=== PATIENT | male | born 2000 | race Caucasian/White ===

== ENCOUNTER 2019-05-17 15:18 | Emergency (ER) | payer OTHER ==
[~2019-05-17] VITALS: Ht 167.6 cm; Wt 89.6 kg
[~2019-05-17 15:18] MED LIST: ADDERALL 10 MG10 MG
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
--- OUTSIDE RECORDS SUMMARY | 2019-05-17 15:21 | XMS REPORT ---
Author Author [facility] Address Unknown Phone Unavailable Care Team Providers Care Lawn Mower Repairer Name Role Phone Carl DILL Unavailable Unavailable Problems This patient has no known problems. Allergies, Adverse Reactions, Alerts This patient has no known allergies or adverse reactions. Medications This patient has no known medications. Results Test Description Test Time Test Comments Text Results Atomic Results Result Comments TISSUE EXAM 2018-12-11 09:57:00 Surgical Pathology Report Case: [id number] Authorizing Provider: Billy Jackson MD Collected: 11/20/2018 1441 Ord ering Location: [facility] Received: 11/20/2018 1547 SERVICES Pathologist: Aidan Pak MD Specimen: Disc L5-S1 VERTEBRAL COLUMN, INTERVERTEBRAL DISC, DISCECTOMY:FRAGMENTS OF FIBROCARTILAGE WITH MILD DEGENERATIVE CHANGES Signing Pathologist Direct Phone Line: [phone] signed by Aidan Pak MD on 12/11/2018 at 9:57 [id number]; [id number] nucleus pulposus of the lumbarDisc L5-X7Ejsquufd in saline labeled with the patient's information and labeled "disc L5-S1" are multiple fragments of nino-pink fibrocartilaginous tissue measuring 2.5 x 2 x 0.5 cm in aggregate, submitted entirely A1 for decalcification. KAH/CG/pl Performed NEEDLE EMG, 2 EXTREMITY 2018-11-22 11:43:00 NEUROCONNECT INTRAOPERATIVE MONITORING REPORT Patient Name: Espinoza Gonzalez [facility] Ce nter Surgery Date: 11/20/2018 [place] Pro: [id number] Monitoring began at 1343 and ended at 1354 Surgeon: Billy Jackson M.D Examining Physician : Charlene Chong M.D. Monitoring Technologist: THOMAS Fam Procedure: L5-S1 Microdisc Free-running EMG of bilateral Vastus Lateralis (L2- L4), Tibialis Anterior (L4-L5), and Lateral Gastrocnemius (L5-S2) [...] the nerve roots monitored remained undisturbed. Charlene Chong M.D. M54.41, M51.26 C METABOLIC PANEL 2018-11-21 06:56:00 SODIUM (BEAKER) (test vapn=167) 138 meq/L 136-145 POTASSIUM (BEAKER) (test rzvx=393) 4.2 meq/L 3.5-5.1 CHLORIDE (BEAKER) (test mlea=417) 106 meq/L 98-107 CO2 (BEAKER) (test ptiq=630) 24 meq/L 22-29 BLOOD UREA NITROGEN (BEAKER) (test lodo=737) 17 mg/dL 7-21 CREATININE (BEAKER) (test opqm=321) 0.86 mg/dL 0.57-1.25 GLUCOSE RANDOM (BEAKER) (test bcwk=393) 131 mg/dL 70-105 CALCIUM (BEAKER) (test irod=515) 9.5 mg/dL 8.4-10.2 EGFR (BEAKER) (test omal=3328) 113 mL/min/1.73 sq m ESTIMATED GFR IS NOT ACCURATE CREATININE CLEARANCE IN PREDICTING GLOMERULAR FILTRATION RATE. ESTIMATED GFR IS NOT APPLICABLE FOR DIALYSIS PATIENTS. CBC (HEMOGRAM ONLY)2018-11-21 06:34:00* Test Item Value Reference Range Comments WHITE BLOOD CELL COUNT (BEAKER) (test xjfq=852) 10.9 K/ L 3.5-10.5 RED BLOOD CELL COUNT (BEAKER) (test fttw=852) 4.84 M/ L 4.63-6.08 HEMOGLOBIN (BEAKER) (test yhrz=356) 14.5 GM/DL 13.7-17.5 HEMATOCRIT (BEAKER) (test odcy=158) 41.2 % 40.1-51.0 MEAN CORPUSCULAR VOLUME (BEAKER) (test bugb=037) 85.1 fL 79.0-92.2 MEAN CORPUSCULAR HEMOGLOBIN (BEAKER) (test vaem=676) 30.0 pg 25.7-32.2 MEAN CORPUSCULAR HEMOGLOBIN CONC (BEAKER) (test aggy=578) 35.2 GM/DL 32.3-36.5 RED CELL DISTRIBUTION WIDTH (BEAKER) (test soky=568) 11.7 % 11.6-14.4 PLATELET COUNT (BEAKER) (test wslq=786) 201 K/CU MM 150-450 MEAN PLATELET VOLUME (BEAKER) (test xhbs=181) 10.2 fL 9.4-12.4 NUCLEATED RED BLOOD CELLS (BEAKER) (test pgmk=545) 0 /100 WBC 0-0 FL, INFECTION CONTROL RN IN OR/30 MINUTE [id number] 14:30:00Reason for exam:->PAIN FINAL REPORT Localization: Clinical history: Pain Compari son: No comparison Two image(s) was(were) submitted for interpretation. Report:I maging was performed in the operating room. Surgical hardware is seen overlying the posterior soft tissues of the back at L5-S1. This information was discussed with the OR personnel at the time of dictation. Signed: Audrey Guido Ve rified Date/Time: 11/20/2018 14:30:02 Reading Location: [facility] B1 [id number] Consult Re ading Room C METABOLIC [id number] 05:31:00* Test Item Value Reference Range Comments SODIUM (BEAKER) (test dmak=321) 139 meq/L 136-145 POTASSIUM (BEAKER) (test wafx=978) 4.4 meq/L 3.5-5.1 CHLORIDE (BEAKER) (test rlga=010) 104 meq/L 98-107 CO2 (BEAKER) (test tvaq=636) 27 meq/L 22-29 BLOOD UREA NITROGEN (BEAKER) (test gogr=548) 18 mg/dL 7-21 CREATININE (BEAKER) (test qbzc=760) 0.90 mg/dL 0.57-1.25 GLUCOSE RANDOM (BEAKER) (test cdcz=864) 96 mg/dL 70-105 CALCIUM (BEAKER) (test qgqw=248) 10.0 mg/dL 8.4-10.2 EGFR (BEAKER) (test usbi=7109) 108 mL/min/1.73 sq m ESTIMATED GFR IS NOT ACCURATE CREATININE CLEARANCE IN PREDICTING GLOMERULAR FILTRATION RATE. ESTIMATED GFR IS NOT APPLICABLE FOR DIALYSIS PATIENTS. [id number] 05:18:00* Test Item Value Reference Range Comments PARTIAL THROMBOPLASTIN TIME (BEAKER) (test hwdx=181) 31.2 seconds 22.5-36.0 CBC W/PLT COUNT & AUTO [id number] 05:10:00* Test Item Value Reference Range Comments WHITE BLOOD CELL COUNT (BEAKER) (test evbz=188) 4.2 K/ L 3.5-10.5 RED BLOOD CELL COUNT (BEAKER) (test iilm=405) 5.02 M/ L 4.63-6.08 HEMOGLOBIN (BEAKER) (test anal=399) 15.0 GM/DL 13.7-17.5 HEMATOCRIT (BEAKER) (test rdgd=300) 43.0 % 40.1-51.0 MEAN CORPUSCULAR VOLUME (BEAKER) (test hwhc=581) 85.7 fL 79.0-92.2 MEAN CORPUSCULAR HEMOGLOBIN (BEAKER) (test yxad=613) 29.9 pg 25.7-32.2 MEAN CORPUSCULAR HEMOGLOBIN CONC (BEAKER) (test ofaq=238) 34.9 GM/DL 32.3-36.5 RED CELL DISTRIBUTION WIDTH (BEAKER) (test ccyb=315) 11.8 % 11.6-14.4 PLATELET COUNT (BEAKER) (test jmuo=763) 182 K/CU MM 150-450 MEAN PLATELET VOLUME (BEAKER) (test rgcc=141) 10.0 fL 9.4-12.4 NUCLEATED RED BLOOD CELLS (BEAKER) (test jlrm=786) 0 /100 WBC 0-0 NEUTROPHILS RELATIVE PERCENT (BEAKER) (test wxdk=565) 36 % LYMPHOCYTES RELATIVE PERCENT (BEAKER) (test pqal=929) 45 % MONOCYTES RELATIVE PERCENT (BEAKER) (test seig=740) 13 % EOSINOPHILS RELATIVE PERCENT (BEAKER) (test yagf=080) 5 % BASOPHILS RELATIVE PERCENT (BEAKER) (test olyk=742) 1 % NEUTROPHILS ABSOLUTE COUNT (BEAKER) (test nzjd=954) 1.51 K/ L 1.78-5.38 LYMPHOCYTES ABSOLUTE COUNT (BEAKER) (test timu=088) 1.86 K/ L 1.32-3.57 MONOCYTES ABSOLUTE COUNT (BEAKER) (test bvmg=347) 0.55 K/ L 0.30-0.82 EOSINOPHILS ABSOLUTE COUNT (BEAKER) (test gbzj=394) 0.19 K/ L 0.04-0.54 BASOPHILS ABSOLUTE COUNT (BEAKER) (test mpho=591) 0.03 K/ L 0.01-0.08 IMMATURE GRANULOCYTES-RELATIVE PERCENT (BEAKER) (test unrj=6781) 1 % 0-1 BASIC METABOLIC [id number] 05:06:00* Test Item Value Reference Range Comments SODIUM (BEAKER) (test ietv=245) 140 meq/L 136-145 POTASSIUM (BEAKER) (test pnrz=785) 3.8 meq/L 3.5-5.1 Specimen slightly hemolyzed CHLORIDE (BEAKER) (test qjmk=516) 108 meq/L 98-107 CO2 (BEAKER) (test qabh=885) 24 meq/L 22-29 BLOOD UREA NITROGEN (BEAKER) (test ttat=175) 18 mg/dL 7-21 CREATININE (BEAKER) (test ccap=854) 0.88 mg/dL 0.57-1.25 Specimen slightly hemolyzed GLUCOSE RANDOM (BEAKER) (test fvxn=805) 104 mg/dL 70-105 CALCIUM (BEAKER) (test ejdq=227) 9.3 mg/dL 8.4-10.2 EGFR (BEAKER) (test msvb=6619) 110 mL/min/1.73 sq m ESTIMATED GFR IS NOT ACCURATE CREATININE CLEARANCE IN PREDICTING GLOMERULAR FILTRATION RATE. ESTIMATED GFR IS NOT APPLICABLE FOR DIALYSIS PATIENTS. PROTHROMBIN TIME/[id number] 04:57:00* Test Item Value Reference Range Comments PROTIME (BEAKER) (test pjub=129) 13.5 seconds 11.7-14.7 INR (BEAKER) (test sukp=879) 1.0 <=5.9 RECOMMENDED COUMADIN/WARFARIN INR THERAPY RANGESSTANDARD DOSE: 2.0 - 3.0 Inclu tuan: PROPHYLAXIS for venous thrombosis, systemic embolization; TREATMENT for allen ous thrombosis and/or pulmonary embolus.HIGH RISK: Target INR is 2.5-3.5 for pat ients with mechanical heart valves.MR, SPINE, LUMBAR, WITHOUT [id number] 18:42:00FINAL REPORT MRI lumbar spine without contrast 11/18/2018 [...] the right S1 nerve root. Signed: Pb Delgado [facility] Verified Date/Time: 11/18/2018 18:42:24 Reading Location: [facility] Radiology Reading Room ALYSIS W/ [id number] 14:10:00* Test Item Value Reference Range Comments COLOR (BEAKER) (test blnk=903) Yellow CLARITY (BEAKER) (test vvll=941) Clear SPECIFIC GRAVITY UA (BEAKER) (test skqj=056) 1.026 1.001-1.035 PH UA (BEAKER) (test ujdk=655) 6.5 5.0-8.0 PROTEIN UA (BEAKER) (test grvk=629) Negative Negative GLUCOSE UA (BEAKER) (test kamm=419) Negative Negative KETONES UA (BEAKER) (test ktta=971) Negative Negative BILIRUBIN UA (BEAKER) (test ttus=121) Negative Negative BLOOD UA (BEAKER) (test rvyj=489) Negative Negative NITRITE UA (BEAKER) (test fgnz=811) Negative Negative LEUKOCYTE ESTERASE UA (BEAKER) (test mnwo=855) Negative Negative UROBILINOGEN UA (BEAKER) (test oyuq=143) 0.2 mg/dL 0.2-1.0 RBC UA (BEAKER) (test maiy=908) 0 /HPF WBC UA (BEAKER) (test emao=632) < /HPF MUCUS (BEAKER) (test vlbv=8287) Rare SOURCE(BEAKER) (test xwde=8125) U/S, TESTICULAR (SCROTUM)2018-11-18 13:55:00Reason for exam:->BACK PAINReason for exam:->LEG PAINright leg painFINAL REPORT Scrotal ultrasound Clinical History: Back pain [...] 1. Unremarkable scrotal ultrasound. Signed: Fadi Jarquin MDReport Verified Date/Time: 11/18/2018 13:55:54 Reading Location: [address] Ultrasound Reading Room , HIP, 2 VIEWS, [id number] 12:45:00Reason for exam:->BACK PAINReason for exam:-> LEG PAINright leg painFINAL REPORT EXAMS:AP radiograph of the pelvis and AP and lateral views of the right hip HISTORY PROVIDED: Back pain, leg pain COMPARISON: None available IMPRESSION:No acute fracture or dislocation is identified. The soft tissues are unremarkable. Signed: Jennifer Funez Verified Date/Time: 11/18/2018 12:45:43 Reading Location: [facility] Reading Room , PELVIS, 1 OR 2 [id number] 12:45:00 Reason for exam:->BACK PAINReason for exam:->LEG PAINright leg painFINAL REPORT EXAMS:AP radiograph of the pelvis and AP and lateral views of the right hip HISTORY PROVIDED: Back pain, leg pain COMPARISON: None available IMPRESSION:No acute fracture or dislocation is identified. The soft tissues are unremarkable. Signed: Jennifer Funez Verified Date /Time: 11/18/2018 12:45:43 Reading Location: [facility] Reading Room Elec tronically signed by: JENNIFER FUNEZ on 11/18/2018 12:45 PM
[2019-05-17] MEDS ORDERED: ALBUTEROL/IPRATROPIUM 3 ML NEB NEB ONE (15:45)
[2019-05-17] MEDS ORDERED: ALBUTEROL/IPRATROPIUM 3 ML NEB ONE (16:06)
--- NOTE | 2019-05-17 16:08 | Diagnostic Imaging Report ---
EXAMINATION: CXR 2 VIEW - HOPD INDICATION: Cough. COMPARISON: None FINDINGS: TUBES and LINES: Loop recorder overlying the left lung base. LUNGS: Lungs are well inflated. Lungs are clear. There is no evidence of pneumonia or pulmonary edema. PLEURA: No pleural effusion or pneumothorax. HEART AND MEDIASTINUM: The cardiomediastinal silhouette is unremarkable. BONES AND SOFT TISSUES: No acute osseous lesion. Soft tissues are unremarkable. UPPER ABDOMEN: No free air under the diaphragm. IMPRESSION: No acute thoracic abnormality. Signed by: Dr. Jeremy Henao M.D. on 05/17/2019 4:05 PM
[2019-05-17 16:56] VITALS: BP 106/78
== END 2019-05-17 16:50 | disposition home or self-care (01) ==
LOC: FSED 15:18
DX: R05 Cough (principal); J45.31 Mild persistent asthma with (acute) exacerbation
CPT/HCPCS: 71046; 99283

== ENCOUNTER 2019-08-06 21:17 | Emergency (ER) | payer OTHER ==
[~2019-08-06] VITALS: Ht 167.6 cm; Wt 86.2 kg
--- OUTSIDE RECORDS SUMMARY | 2019-08-06 21:19 | XMS REPORT | Summary of Care ---
Author Author [facility] Organization [facility] Address Unknown Phone Unavailable Care Team Providers Care Crusher Machine Operator Name Role Phone Tavares Mir DO PCP Reason for Visit * Reason Comments Follow Up Encounter Details Care Team Description Date Type Department Billy Jackson MD [address] [place] [address] Follow Up 06/16/2019 Office Visit [facility] Neurosurgery [address], [address] [place] [address] Allergies Comments Active Allergy Reactions Severity Noted Date Erythromycin Rash Medium 05/18/2016 documented as of this encounter (statuses as of 06/20/2019) Medications End Date Status Medication Sig Dispensed Refills Start Date Active amphetamine-dextroampheta Take 10 mg by 0 mine (ADDERALL, 10MG,) 10 mouth daily. MG tablet Active methylPREDNISolone Take 1 Tab by 21 Tab 0 (MEDROL DOSEPACK) 4 MG mouth See 9 tablet Admin Instructions. Active lorazepam (ATIVAN) 0.5 MG Take 1 tablet 2 Tab 0 tablet PO 1 hr prior 9 to the MRI, may repeat x1 immediately prior to the MRI documented as of this encounter (statuses as of 06/20/2019) Active Problems Problem Noted Date Status post placement of implantable loop recorder 09/18/2016 documented as of this encounter (statuses as of 06/20/2019) Social History Date Tobacco Use Types Packs/Day Years Used Never Smoker Smokeless Tobacco: Never Used Drinks/Week oz/Week Comments Alcohol Use No Sex Assigned at Date Recorded Not on file Industry Job Start Date Occupation Not on file Not on file Not on file Travel End Travel History Travel Start No recent travel history available. documented as of this encounter Last Filed Vital Signs Reading Time Taken Comments Vital Sign 133/78 06/16/2019 12:01 PM CDT Blood Pressure 92 06/16/2019 12:01 PM CDT Pulse - - Temperature 18 06/16/2019 12:01 PM CDT Respiratory Rate - - Oxygen Saturation - - Inhaled Oxygen Concentration 86.2 kg (190 lb) 06/16/2019 12:01 PM CDT Weight 167.6 cm (5' 6") 06/16/2019 12:01 PM CDT Height 30.67 06/16/2019 12:01 PM CDT Body Mass Index documented in this encounter Progress Notes * Billy Jackson MD - 06/16/2019 10:00 AM CDT Reason for visit: Post op visit. I had the pleasure of seeing Mr. Gonzalez at the neurosurgery clinic. The patie nt is a 18 y.o. male, about 7 months who underwent right L5-S1 hemilaminotomies with medial facetecomy and foraminotomy with microdiscectomy on 11/20/18 for Lum bar radiculopathy and Lumbar disc herniation, L5-S1. He initially did well after surgery, but his pain returned April 2019. He remains with right posterior leg pain that radiates to the plantar aspect of the foot with numbness. His pain is not constant, but is still very bothersome. His back pain is minimal. Pain severity is typically 5/10 and flares up to 10/1 0. His pain is intensified when he sneezes or coughs. He has completed an MRI of the lumbar spine and is here to discuss results. Patient returns for follow up to discuss their progress. CURRENT MEDICATIONS: Current Outpatient Medications Medication Sig Dispense Refill amphetamine-dextroamphetamine (ADDERALL, 10MG,) 10 MG tablet Take 10 mg by m outh daily. lorazepam (ATIVAN) 0.5 MG tablet Take 1 tablet PO 1 hr prior to the MRI, may repeat x1 immediately prior to the MRI 2 Tab 0 methylPREDNISolone (MEDROL DOSEPACK) 4 MG tablet Take 1 Tab by mouth See Adm in Instructions. 21 Tab 0 No current facility-administered medications for this visit. REVIEW OF SYSTEMS: General ROS: negative for - chills, hot flashes, malaise or night sweats Respiratory ROS: no cough, shortness of breath, or wheezing Cardiovascular ROS: no chest pain or dyspnea on exertion Musculoskeletal ROS: +right leg pain negative for - joint stiffness, joint swell ing or muscular weakness Neurological ROS: negative for - bowel and bladder control changes, confusion, s eizures or visual changes PHYSICAL EXAM: Vitals: 06/16/19 1201 BP: 133/78 Pulse: 92 Resp: 18 Weight: 190 lb (86.2 kg) Height: 5' 6" (1.676 m) Patient is oriented to person, place and time. CN 2-12 are grossly intact bilaterally Motor exam: UE D B T WF WE IM Rt 5/5 5/5 5/5 5/5 5/5 5/5 Lt 5/5 5/5 5/5 5/5 5/5 5/5 LE: IP KE KF DF PF EHL Rt 5/5 5/5 5/5 5/5 5/5 5/5 Lt 5/5 5/5 5/5 5/5 5/5 5/5 Sensory exam : intact to light touch DTR: 2+ throughout Gait: antalgic DIAGNOSTIC IMAGING: MRI of the lumbar spine ([facility]) dated 06/16/19 residual vs. recurrent disc he rniation on the right at L5/S1 DIAGNOSIS: Encounter Diagnosis and Orders ICD-10-CM 1. HNP (herniated nucleus pulposus), lumbar M51.26 2. Lumbar radiculopathy M54.16 ASSESSMENT/PLAN: Mr. Espinoza Gonzalez is a pleasant 18 y.o. male, about 7 months who un derwent right L5-S1 hemilaminotomies with medial facetecomy and foraminotomy wit h microdiscectomy on 11/20/18 for Lumbar radiculopathy and Lumbar disc herniatio n, L5-S1. He reports recurrent lumbar radicular pain. Imaging of the lumbar spin e reveals a residual vs. recurrent disc herniation on the right at L5/S1. After review of neurological exam, clinical history, and radiological studies, surgery is offered to the patient. Surgery will entail a Redo MIS right L5/S1 microdisc ectomy. The indications, methods, alternatives, and risks of lumbar discectomy surgery w ere described in detail to the patient. Indications include decompression of th e thecal sac and nerve roots to alleviate the patient's symptoms. Methods inclu de an open surgical approach. Alternatives include continued conservative thera py with injections, physical therapy, and analgesic medications, or other proced ures such as interspinous distraction devices. Risks of surgery include, but ar e not limited to , coma, paralysis, infection, need for additional surgery, cerebrospinal fluid leak, delayed spinal instability, nerve root injury, etc. Medical complications including deep venous thrombosis and pulmonary embolism, p neumonia, urinary tract infection, cerebrovascular accident, blindness, and myoc ardial infarction, etc., were also reviewed. The patient understands these risks and agrees to proceed. He will call in to schedule. Billy Jackson MD Aluminum Siding Installer Department of Neurosurgery [facility] documented in this encounter Plan of Treatment Health Maintenance Due Date Last Done Comments TETANUS SHOT (ADULT) 2013 04/20/2003, 02/20/2001, 11/16/1999, Additional history exists BMI FOLLOW UP PLAN 2016 HIV SCREENING 2016 FLU VACCINE > 6 MONTHS 05/29/2019 documented as of this encounter Results Not on filedocumented in this encounter Visit Diagnoses Diagnosis HNP (herniated nucleus pulposus), lumbar - Primary Displacement of lumbar intervertebral disc without myelopathy Lumbar radiculopathy Thoracic or lumbosacral neuritis or radiculitis, unspecified documented in this encounter Insurance Type Payer Benefit Subscriber ID Effective Phone Address Plan / Dates Group PPO [employer] xxxxxxxxx 2018-P [address] [id number] [id number] [employer]EE [facility] [place] [address] PPO PRIME - xxxxxxxxxxx 2013- [address] [address] [place] [address] documented as of this encounter
[2019-08-06] MEDS ORDERED: KETOROLAC TROMETHAMINE 30 MG/ML VIAL IV STA (21:53)
[2019-08-06] MEDS ORDERED: SODIUM CHLORIDE 0.9% 1000ML 1,000 ML IV SCH (22:00)
[2019-08-06] MEDS ORDERED: ONDANSETRON HCL 4 MG ORAL DISINTEGRATING TAB PO PRN (22:00)
[2019-08-06] MEDS ORDERED: KETOROLAC TROMETHAMINE 30 MG/ML VIAL ONE (22:23)
[2019-08-06] MEDS ORDERED: SODIUM CHLORIDE 0.9% 1000ML 1,000 ML ONE (22:23)
--- NOTE | 2019-08-06 23:08 | Diagnostic Imaging Report ---
EXAM: CT Abdomen and Pelvis WITHOUT contrast INDICATION: Abdominal pain. COMPARISON: None. TECHNIQUE: Abdomen and pelvis were scanned utilizing a multidetector helical scanner from the lung base to the pubic symphysis without administration of IV contrast. Absence of intravenous contrast decreases sensitivity for detection of focal lesions and vascular pathology. Coronal and sagittal reformations were obtained. Routine protocol was performed. IV CONTRAST: None. ORAL CONTRAST: Water RADIATION DOSE: Total DLP: 718.03 mGy*cm Estimated effective dose: (DLP x 0.015 x size factor) mSv COMPLICATIONS: None FINDINGS: LINES and TUBES: None. LOWER THORAX: There is bibasilar atelectasis. HEPATOBILIARY: No focal hepatic lesions. No biliary ductal dilation. GALLBLADDER: No radio-opaque stones or sludge. No wall thickening. SPLEEN: No splenomegaly. PANCREAS: No focal masses or ductal dilatation. ADRENALS: No adrenal nodules KIDNEYS/URETERS: No hydronephrosis. No cystic or solid mass lesions. No stones. GI TRACT: No abnormal distention, wall thickening, or evidence of bowel obstruction. Appendix is normal. PELVIC ORGANS/BLADDER: Unremarkable. LYMPH NODES: No lymphadenopathy. VESSELS: Unremarkable. PERITONEUM / RETROPERITONEUM: No free air or fluid. There is a small focal area of fat attenuation abutting the descending colon measuring 1.2 cm on images 63 series 2, associated with mild fat stranding as seen on axial images 61 and 62 suggestive of epiploic appendagitis. BONES: Unremarkable. SOFT TISSUES: Unremarkable. IMPRESSION: 1. Findings suggestive of epiploic appendagitis (correlate for pain in the left lower quadrant). Signed by: Dr. Enoc Simpson M.D. on 08/06/2019 11:05 PM
[2019-08-07 00:07] VITALS: BP 128/69
== END 2019-08-07 00:22 | disposition home or self-care (01) ==
LOC: FSED 21:17
DX: R10.32 Left lower quadrant pain (principal)
CPT/HCPCS: 74176; 80053; 81003; 85025; 96374; 99284; J1885; J7030

== ENCOUNTER 2019-11-27 17:10 | Emergency (ER) | payer OTHER ==
[~2019-11-27] VITALS: Ht 167.6 cm; Wt 91.2 kg
--- NOTE | 2019-11-27 17:56 | Diagnostic Imaging Report ---
EXAMINATION: CXR 2 VIEW - HOPD INDICATION: Cough COMPARISON: None FINDINGS: LINES/TUBES:None LUNGS:The lungs are well-inflated. No focal consolidation or pulmonary edema. PLEURA:No pleural effusion or pneumothorax. MEDIASTINUM:The cardiomediastinal silhouette appears normal in size and shape. BONES/SOFT TISSUES:No acute osseous injury. ABDOMEN:No free air under the diaphragm. IMPRESSION: No focal pneumonia or pulmonary edema. Signed by: Jennifer Allen MD on 11/27/2019 5:53 PM
[2019-11-27] MEDS ORDERED: NAPROSYN500 MG PO (18:04)
[2019-11-27] MEDS ORDERED: TESSALON PERLE100 MG PO (18:04)
[2019-11-27] MEDS ORDERED: VENTOLIN HFA18 GM PO (18:04)
== END 2019-11-27 18:22 | disposition home or self-care (01) ==
LOC: FSED 17:10
DX: R50.9 Fever, unspecified (principal); R05 Cough; J11.1 Influenza due to unidentified influenza virus with other respiratory manifestations
CPT/HCPCS: 71046; 83518; 87400; 99283

== ENCOUNTER 2020-03-05 16:29 | Emergency (ER) | payer OTHER ==
[~2020-03-05] VITALS: Ht 167.6 cm; Wt 86.2 kg
[~2020-03-05 16:29] MED LIST changes: +NAPROSYN500 MG PO; +TESSALON PERLE100 MG PO; +VENTOLIN HFA18 GM PO
--- OUTSIDE RECORDS SUMMARY | 2020-03-05 16:32 | XMS REPORT | Clinical Summary ---
Author Author CHRISTINE [employer] [facility]The 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 Active ibuprofen (ADVIL,MOTRIN) Take 600 mg 0 600 MG tablet by mouth every 6 (six) hours as needed for Pain. 11/16/2019 acetaminophen (TYLENOL) Take 2 30 tablet 0 325 MG tablet tablets (650 9 mg total) by mouth every 4 (four) hours as needed for up to 360 days. 10/13/2019 acetaminophen-codeine Take 1 tablet 20 tablet 0 (TYLENOL #4) 300-60 mg by mouth 9 per tablet every 4 (four) hours as needed for Pain for up to 10 days. Max Daily Amount: 6 tablets Active Problems Problem Noted Date Recurrent herniation of lumbar disc 10/03/2019 Lumbar nerve root compression 11/19/2018 Acute right-sided low back pain with right-sided scia [place] 11/19/2018 Encounters Care Team Description Date Type Specialty Billy Jackson MD LAMINECTOMY,LUMBAR MIS 10/03/2019 Surgery Aurelia Pardo MD 10/03/2019 Anesthesia Event Billy Jackson MD Pre-op testing 10/03/2019 Hospital Encounter Billy Jackson MD 09/30/2019 Hospital Encounter Billy Jackson MD 09/30/2019 Hospital Cardiology Encounter Billy Jackson MD Recurrent herniation of lumbar disc; Pre-op testing 09/30/2019 Hospital Pre-Admission Testi ng Encounter Tavares Sherman 09/30/2019 Outside Orders Billy Jackson MD Pre-op testing (Primary Dx); Recurrent herniation of lumbar disc 09/18/2019 Orders Only Family Medicine Lacie Goodson, RN BIRTHING 1.5, [facility] Johnny Mr Lumbar radiculopathy; Personal history of surgery to heart and great vessels, presenting hazards to health 06/16/2019 Hospital Magnetic Resonance Encounter Imaging Lacie Goodson RN BIRTHING Lumbar radiculopathy (Primary Dx); Personal history of surgery to heart and great vessels, presenting hazards to health 05/19/2019 Outside Orders Central Scheduling after 03/05/2019 Family History Medical History Relation Name Comments No Known Problem Other Relation Name Status Comments Other Social History Date Tobacco Use Types Packs/Day Years Used Never Smoker Smokeless Tobacco: Never Used Alcohol Use Drinks/Week oz/Week Comments No Alcohol Habits Answer Date Recorded How often do you have a drink containing alcohol? Never 11/18/2018 How many drinks containing alcohol do you have on No t asked a typical day when you are [...] Vital Signs Time Taken Vital Sign Reading 10/03/2019 1:40 PM RADIO TELEVISION ANNOUNCER Blood Pressure 117/55 10/03/2019 1:40 PM [employer]IO TELE[employer]ION ANNOUNCER Pulse 66 10/03/2019 1:40 PM RADIO TELEVISION ANNOUNCER Temperature 37.1 C (98.8 F) 10/03/2019 1:40 PM RADIO TELEVISION ANNOUNCER Respiratory Rate 15 10/03/2019 10:53 AM RADIO TELEVISION ANNOUNCER Oxygen Saturation 97% - Inhaled Oxygen - Concentration 10/03/2019 6:00 AM RADIO TELEVISION ANNOUNCER Weight 90.2 kg (198 lb 13.7 oz) 10/03/2019 6:00 AM RADIO TELEVISION ANNOUNCER Height 168.9 cm (5' 6.5") 10/03/2019 6:00 AM RADIO TELEVISION ANNOUNCER Body Mass Index 31.62 Plan of Treatment Not on file Procedures Comments Procedure Name Priority Date/Time Associated Diag nosis RHYTHM STRIP - SCAN 10/07/2019 1:51 PM RADIO TELEVISION ANNOUNCER NEEDLE EMG, 2 EXTREMITY Routine 10/03/2019 9:11 AM RADIO TELEVISION ANNOUNCER TISSUE EXAM AP Routine 10/03/2019 9:02 AM RADIO TELEVISION ANNOUNCER FL FLUORO NON-SPECIFIC UP Routine 10/03/2019 TO 1 HOUR 8:21 AM RADIO TELEVISION ANNOUNCER PROCEDURE W/ C-ARM 10/03/2019 Recurrent herniati on of 7:30 AM RADIO TELEVISION ANNOUNCER lumbar disc Case Notes 60 MINS PER LEILA Special Needs (PRONE POSITION, C-ARM, NEURO-ED TORING:EMG , MICROSCOPE , REGULAR OR TABLE, MAME FRAME, MEDTRONIC) PROCEDURE W/ 10/03/2019 Recurrent herniatio n of INTRAOPERATIVE 7:30 AM RADIO TELEVISION ANNOUNCER lumbar disc NEUROMONITORING Case Notes 60 MINS PER LEILA Special Needs (PRONE POSITION, C-ARM, NEURO-ED TORING:EMG , MICROSCOPE , REGULAR OR TABLE, MAME FRAME, MEDTRONIC) LAMINECTOMY,LUMBAR MIS 10/03/2019 Recurrent brayden iation of 7:30 AM RADIO TELEVISION ANNOUNCER lumbar disc Case Notes 60 MINS PER LEILA Special Needs (PRONE POSITION, C-ARM, NEURO-ED TORING:EMG , MICROSCOPE , REGULAR OR TABLE, MAME FRAME, MEDTRONIC) TRANSFUSION SERVICE 10/01/2019 REPORT - SCAN 5:55 PM RADIO TELEVISION ANNOUNCER ECG 12-LEAD Routine 09/30/2019 11:09 AM RADIO TELEVISION ANNOUNCER Procedure Note - Interface, External Ris In - 09/30/2019 5:14 PM RADIO TELEVISION ANNOUNCER Ventricula r Rate 63 BPM Atrial Rate 63 BPM P-R Interval 122 ms QRS Duration 90 ms Q-T Interval 358 ms QTC Calculatio n(Bazett) 366 ms P Hastings 35 degrees R Hastings 12 degrees T Hastings 26 degrees Normal sinus rhythm with sinus arrhythmia Normal ECG No previous ECGs available ECG 12-LEAD STAT 09/30/2019 Pre-op testing 11:09 AM RADIO TELEVISION ANNOUNCER XR CHEST 2 VIEWS Routine 09/30/2019 Recurrent her niation of 10:29 AM RADIO TELEVISION ANNOUNCER lumbar disc CBC W/PLT COUNT & AUTO Routine 09/30/2019 Pre-op testing DIFFERENTIAL 10:05 AM RADIO TELEVISION ANNOUNCER TYPE AND SCREEN, Routine 09/30/2019 Pre-op testin g AUTOMATED 10:05 AM RADIO TELEVISION ANNOUNCER URINALYSIS W/ REFLEX Routine 09/30/2019 Pre-op te sting URINE CULTURE 10:05 AM RADIO TELEVISION ANNOUNCER CBC W/PLT COUNT & AUTO Routine 09/30/2019 Pre-op testing DIFFERENTIAL 10:05 AM RADIO TELEVISION ANNOUNCER BASIC METABOLIC PANEL (7) Routine 09/30/2019 Pre- op testing 10:05 AM RADIO TELEVISION ANNOUNCER PROTHROMBIN TIME/INR Routine 09/30/2019 Pre-op te sting 10:05 AM RADIO TELEVISION ANNOUNCER APTT Routine 09/30/2019 Pre-op testing 10:05 AM RADIO TELEVISION ANNOUNCER MR LUMBAR SPINE WITHOUT STAT 06/16/2019 Lumbar radiculopathy IV CONTRAST 11:57 AM CDT Personal history of surgery to heart and great vessels, presenting hazards to health after 03/05/2019 Results * RHYTHM STRIP - SCAN (10/07/2019 1:51 PM RADIO TELEVISION ANNOUNCER) Narrative Performed At This result has an attachment that is n ot available. * NEEDLE EMG, 2 EXTREMITY (10/03/2019 9:11 AM RADIO TELEVISION ANNOUNCER) Specimen Narrative Performed At INTRAOPERATIVE MONITORING REPORT GE RIS Patient Name: Espinoza Gonzalez [facility] [place] Surgery Date:10/03/2019 Bunch Pro: [id number] Monitoring began at 724 and ended at 91 1 Surgeon: Billy Jackson M.D. Examining Physician: Winnie Kingston M.D. Monitoring Technologist: THOMAS De La Cruz Procedure: Microdisc L5-S1 Free-running EMG of bilateral Tibialis Anterior (L4-5) and Lateral Gastrocnemius (L5-S2) muscle groups. Description:Intraoperative neurophy siological monitoring was performed using free-running EMG of L2- S2 innervated muscle groups. Free-running EMG of L4-S2 innervated mu scle groups was monitored continuously throughout the operative p rocedure with some sporadic neurotonic emg firing seen in the right gastrocnemius. No firing was noted at closing.At closing, all EM G was quiet and stable with baselines. Surgeon aware of all respons es throughout the case and at closing. Conclusion: EMG results suggest that th ere were brief periods of probable neurotonic activity in the rig ht gastrocnemius, suggesting transient irritation of the involved ne rve/nerve root intraoperatively. Winnie Kingston M.D. M54.16 Procedure Note Interface, External Ris In - 11/04/2019 9:16 AM RADIO TELEVISION ANNOUNCER INTRAOPERATIVE MONITORING REPORT Patient Name: Espinoza Gonzalez [facility] Surgery Date: 10/03/2019 Bunch Pro: [id number] Monitoring began at 724 and ended at 911 Surgeon: Billy Jackson M.D. Examining Physician: Winnie Kingston M.D. Monitoring Technologist: THOMAS De La Cruz Procedure: Microdisc L5-S1 Free-running EMG of bilateral Tibialis Anterior (L4-5) and Lateral Gastrocnemius (L5-S2) muscle groups. Description: Intraoperative neurophysiological monitoring was performed using free-running EMG of L2-S2 innervated muscle groups. Free-running EMG of L4-S2 innervated muscle groups was monitored continuously throughout the operative procedure with some sporadic neurotonic emg firing seen in the right gastrocnemius. No firing was noted at closing. At closing, all EMG was quiet and stable with baselines. Surgeon aware of all responses throughout the case and at closing. Conclusion: EMG results suggest that there were brief periods of probable neurotonic activity in the right gastrocnemius, suggesting transient irritation of the involved nerve/nerve root intraoperatively. Winnie Kingston M.D. M54.16 Performing Organization Address City/State/Zipcode Ph one Number GE RIS * Tissue Exam (10/03/2019 9:02 AM RADIO TELEVISION ANNOUNCER) Case Report Surgical Pathology [facility] TH Report [facility] Case: [id number] Authorizing Provider:Billy Jackson MDCollected: 10/03/2019 0902 Ordering Location: [facility] PERIOPERATIVE Received: 10/03/2019 0950 SERVICES Pathologist: Aidan Pak MD Specimen:Disc L5-S1 DIAGNOSIS VERTEBRAL COLUMN, [facility] INTERVERTEBRAL DISC, L5-S1, [facility] DISCECTOMY: FRAGMENTS OF FIBROCARTILAGE WITH MILD DEGENERATIVE CHANGES Signing Pathologist Direct Phone Line: [phone] CPT Code(s) 38859; 18784 [facility] CLINICAL HISTORY Recurrent herniation of lumbar [facility] disc [facility] SPECIMEN SOURCE Disc L5-S1 [facility] GROSS DESCRIPTION Part A received in formalin [facility] labeled with the patient's [facility] name, accession number and "disc L5-S1" is a 2.5 x 2 x 0.5 cm aggregate of nino-pink to red soft tissue. The specimen is submitted in toto in cassette A1 for decal. NW/ew MICROSCOPIC DESCRIPTION Performed [facility] Specimen Tissue Performing Organization Address City/State/Zipcode Ph one Number [place] [address] [facility] * [place] fluoro non-specific up to 1 hour (10/03/2019 8:21 AM RADIO TELEVISION ANNOUNCER) Specimen Narrative Performed At FINAL REPORT [facility] FL, FLUORO, NON-SPECIFIC, UP TO 1 HOUR CLINICAL INDICATION:back pain COMPARISON: None IMPRESSION: A single lateral view of the lumbar spi ne is obtained intraoperatively. Indicators at the L5- S1 level Results were communicated to Dr. Jackson, who concurr ed with the above findings. Number of images: One Fluoroscopy time: 9.8 seconds Signed: JR Mai Robert MD Report Verified Date/Time: 08:22:18 Reading Location: [facility] Reading Room Procedure Note Interface, External Ris In - 10/03/2019 8:25 AM RADIO TELEVISION ANNOUNCER FINAL REPORT FL, FLUORO, NON-SPECIFIC, UP TO 1 HOUR CLINICAL INDICATION: back pain COMPARISON: None IMPRESSION: A single lateral view of the lumbar spine is obtained intraoperatively. Indicators at the L5-S1 level Results were communicated to Dr. Jackson, who concurred with the above findings. Number of images: One Fluoroscopy time: 9.8 seconds Signed: JR Mai Robert MD Report Verified Date/Time: 10/03/2019 08:22:18 Reading Location: [facility] Radiology Reading Room Performing Organization Address [facility] one Number GE RIS * TRANSFUSION SERVICE REPORT - SCAN (10/01/2019 5:55 PM RADIO TELEVISION ANNOUNCER) Narrative Performed At This result has an attachment that is n ot available. * ECG 12 lead (09/30/2019 11:09 AM RADIO TELEVISION ANNOUNCER) Specimen Narrative Performed At Ventricular Rate 63 BPM GE MUSE Atrial Rate 63 BPM P-R Interval 122 ms QRS Duration 90 ms Q-T Interval 358 ms QTC Calculation(Bazett) 366 ms P Hastings 35 degrees R Hastings 12 degrees T Hastings 26 degrees Normal sinus rhythm with sinus arrhythm ia Normal ECG No previous ECGs available Confirmed by Jay MCKOY BASANT ([id number]) on 10/01/2019 2:07:05 PM Procedure Note Interface, External Ris In - 10/01/2019 2:07 PM RADIO TELEVISION ANNOUNCER Ventricular Rate 63 BPM Atrial Rate 63 BPM P-R Interval 122 ms QRS Duration 90 ms Q-T Interval 358 ms QTC Calculation(Bazett) 366 ms P Hastings 35 degrees R Hastings 12 degrees T Hastings 26 degrees Normal sinus rhythm with sinus arrhythmia Normal ECG No previous ECGs available Confirmed by Jay MCKOY BASANT ([id number]) on 10/01/2019 2:07:05 PM Performing Organization Address [facility] one Number GE MUSE * XR chest 2 views (09/30/2019 10:29 AM RADIO TELEVISION ANNOUNCER) Specimen Narrative Performed At FINAL REPORT GE RIS INDICATION: Recurrent herniation of lum bar disc COMPARISON: None TECHNIQUE: Frontal and lateral views of the chest. FINDINGS: Lungs and pleura: Clear lungs. No effus ion. Heart and mediastinum: Normal heart siz e. Unremarkable mediastinal contours. Stable cardiac recording yasmany ce. Osseous structures: No acute abnormalit y. Additional findings: None. IMPRESSION: No acute intrathoracic abnormality. Signed: JR Mai Robert MD Report Verified Date/Time: 10:34:30 Reading Location: [facility] Radiolo gy Reading Room Procedure Note Interface, External Ris In - 09/30/2019 10:36 AM RADIO TELEVISION ANNOUNCER FINAL REPORT INDICATION: Recurrent herniation of lumbar disc COMPARISON: None TECHNIQUE: Frontal and lateral views of the chest. FINDINGS: Lungs and pleura: Clear lungs. No effusion. Heart and mediastinum: Normal heart size. Unremarkable mediastinal contours. Stable cardiac recording device. Osseous structures: No acute abnormality. Additional findings: None. IMPRESSION: No acute intrathoracic abnormality. Signed: JR Mai Robert MD Report Verified Date/Time: 09/30/2019 10:34:30 Reading Location: [facility] Radiology Reading Room Performing Organization Address City/State/Zipcode Ph one Number GE RIS * Urinalysis w/Microscopic + Reflex to Culture (09/30/2019 10:05 AM RADIO TELEVISION ANNOUNCER) Color, UA Yellow [facility] Clarity, UA Clear [facility] Specific [place], UA 1.023 1.001 - 1.035 [facility] pH, UA 6.5 5.0 - 8.0 [facility] Protein, UA Negative Negative [facility] Glucose, UA Negative Negative [facility] Ketones, UA Negative Negative [facility] Bilirubin, UA Negative Negative [facility] Blood, UA Negative Negative [facility] Nitrite, UA Negative Negative [facility] Leukocytes, UA Negative Negative [facility] Urobilinogen, UA 0.2 0.2 - 1.0 mg/dL [facility] RBC, UA <1 /HPF [facility] WBC, UA <1 /HPF [facility] Mucus Rare [facility] Specimen Source [facility] Specimen Urine Performing Organization Address [facility] one Number [address] [facility] * Type and screen, automated (09/30/2019 10:05 AM RADIO TELEVISION ANNOUNCER) ABO/RH AUTOMATED (BEAKER) O NEGATIVE [facility] Ab Scrn NEGATIVE [facility] Specimen Blood Performing Organization Address [facility] Ph one Number [address] [address] [facility] * CBC with platelet count + automated diff (09/30/2019 10:05 AM RADIO TELEVISION ANNOUNCER) WBC 5.5 3.5 - 10.5 K/L [facility] RBC 5.58 4.63 - 6.08 M/L [facility] Hemoglobin 16.9 13.7 - 17.5 GM/DL [facility] Hematocrit 49.4 40.1 - 51.0 % [facility] MCV 88.5 79.0 - 92.2 fL [facility] MCH 30.3 25.7 - 32.2 pg [facility] MCHC 34.2 32.3 - 36.5 GM/DL [facility] RDW 12.2 11.6 - 14.4 % [facility] Platelets 186 150 - 450 K/CU MM [facility] MPV 10.5 9.4 - 12.4 fL [facility] nRBC 0 0 - 0 /100 WBC [facility] % Neutros 53 % [facility] % Lymphs 32 % [facility] % Monos 12 % [facility] % Eos 1 % [facility] % Baso 1 % [facility] # Neutros 2.93 1.78 - 5.38 K/L [facility] # Lymphs 1.78 1.32 - 3.57 K/L [facility] # Monos 0.64 0.30 - 0.82 K/L [facility] # Eos 0.07 0.04 - 0.54 K/L [facility] # Baso 0.05 0.01 - 0.08 K/L [facility] Immature 1 0 - 1 % [facility] Granulocytes-Relative [facility] Specimen Blood Performing Organization Address City/[facility] Ph one Number [place] [phone] [place] [address] * aPTT (09/30/2019 10:05 AM RADIO TELEVISION ANNOUNCER) PTT 32.2 22.5 - 36.0 seconds [facility] Specimen Blood Performing Organization Address City/[facility] Ph one Number [place] [address] [facility] * Prothrombin time/INR (09/30/2019 10:05 AM RADIO TELEVISION ANNOUNCER) Protime 13.1 11.9 - 14.2 seconds [facility] INR 1.0 <=5.9 [facility] Specimen Blood Narrative Performed At Effective 03/26/2019: PT Reference Range Change [facility] New: 11.9-14.2Previous: 11.7-14.7 [facility] MEDICAL CE NTER RECOMMENDED COUMADIN/WARFARIN INR THERA PY RANGES STANDARD DOSE: 2.0-3.0Includes: PRO PHYLAXIS for venous thrombosis, systemic embolization; TREATMENT for venous thro mbosis and/or pulmonary embolus. HIGH RISK: Target INR is 2.5-3.5 for pa tients wiht mechanical heart valves. Performing Organization Address City/[facility] Ph one Number [address] [facility] * Basic Metabolic Panel (09/30/2019 10:05 AM RADIO TELEVISION ANNOUNCER) Sodium 140 136 - 145 meq/L [facility] Potassium 3.9 3.5 - 5.1 meq/L [facility] Chloride 103 98 - 107 meq/L [facility] CO2 28 22 - 29 meq/L [facility] BUN 16 7 - 21 mg/dL [facility] Creatinine 0.97 0.57 - 1.25 mg/dL [facility] Glucose 88 70 - 105 mg/dL [facility] Calcium 9.8 8.4 - 10.2 mg/dL [facility] EGFR 98Comment: ESTIMATED GFR IS mL/min/1.73 sq m [facility] NOT ACCURATE CREATININE [facility] CLEARANCE IN PREDICTING GLOMERULAR FILTRATION RATE. ESTIMATED GFR IS NOT APPLICABLE FOR DIALYSIS PATIENTS. Specimen Blood Performing Organization Address [facility] one Number [address] [facility] * MR spine lumbar without IV contrast (06/16/2019 11:57 AM CDT) Specimen Narrative Performed At FINAL REPORT Chronicity History: Lumbar radiculopathy Comparison studies: MRI of the lumbar s pine 11/18/2018 Technique: Sagittal, coronal and axial T2 , sagitt al T1 and IR, axialspin density oblique. Intravenous contrast: None Findings: Number of lumbar vertebral bodies:5 Alignment: Normal lordosis.No scoliosis . Soft tissues: No T2 hyperintense inflam matory changes. Paraspinal muscles: No signal abnormali ties.No atrophy. Lower thoracic cord:Normal in signal an d morphology.The tip of the conus is at L1 mid-level. Cauda equina: No masses. No arachnoidit is. Vertebrae: Normal in height and signal intensity. No compression fractures, infection or neoplasm. Degenerative changes: L1-L2: No abnormalities. L2-L3: No abnormalities. L3-L4: No abnormalities. L4-L5: Disc degeneration with loss of T2 signa l. Asymmetric left disc bulge with patent canal and foramina. Trace of fluid at the bilateral facet j oints. L5-S1: Disc degeneration with loss of T2 signa l and decreased intervertebral space. Asymmetric right disc bulge with superimposed right subarticular disc extrusion results in obliteration of the ipsilateral subarticular recess and pos terior displacement of the descending S1 nerve root, improved impi ngement from previous examination. Mild bilateral foraminal n arrowing. Nonvisualization of the right ligamentu m flavum on the right side, related to previous intervention. Trace of fluid at the bilateral facet j oints. Additional findings: None IMPRESSION: Right subarticular disc extrusion (resi dual or recurrent) at L5-S1 results in posterior displacement of th e descending S1 nerve root, the herniated disc is smaller in size c ompared to previous examination with improved impingement o n the descending S1 nerve root. Other mild degenerative changes of the lower lumbar spine without significant (moderate or severe) canal stenosis or foraminal narrowing. Signed: Roland Boogie MD Report Verified Date/Time: 9 12:27:45 Reading Location: [facility] 2 - B01.626 Procedure Note Interface, External Ris In - 06/16/2019 12:29 PM CDT FINAL REPORT History: Lumbar radiculopathy Comparison studies: MRI of the lumbar spine 11/18/2018 Technique: Sagittal, coronal and axial T2 , sagittal T1 and IR, axial spin density oblique. Intravenous contrast: None Findings: Number of lumbar vertebral bodies:5 Alignment: Normal lordosis.No scoliosis. Soft tissues: No T2 hyperintense inflammatory changes. Paraspinal muscles: No signal abnormalities. No atrophy. Lower thoracic cord:Normal in signal and morphology. The tip of the conus is at L1 mid-level. Cauda equina: No masses. No arachnoiditis. Vertebrae: Normal in height and signal intensity. No compression fractures, infection or neoplasm. Degenerative changes: L1-L2: No abnormalities. L2-L3: No abnormalities. L3-L4: No abnormalities. L4-L5: Disc degeneration with loss of T2 signal. Asymmetric left disc bulge with patent canal and foramina. Trace of fluid at the bilateral facet joints. L5-S1: Disc degeneration with loss of T2 signal and decreased intervertebral space. Asymmetric right disc bulge with superimposed right subarticular disc extrusion results in obliteration of the ipsilateral subarticular recess and posterior displacement of the descending S1 nerve root, improved impingement from previous examination. Mild bilateral foraminal narrowing. Nonvisualization of the right ligamentum flavum on the right side, related to previous intervention. Trace of fluid at the bilateral facet joints. Additional findings: None IMPRESSION: Right subarticular disc extrusion (residual or recurrent) at L5-S1 results in posterior displacement of the descending S1 nerve root, the herniated disc is smaller in size compared to previous examination with improved impingement on the descending S1 nerve root. Other mild degenerative changes of the lower lumbar spine without significant (moderate or severe) canal stenosis or foraminal narrowing. Signed: Roland Boogie MD Report Verified Date/Time: 06/16/2019 12:27:45 Reading Location: [facility] Reading Room [address] [place] [address] Performing Organization Address City/State/Zipcode Ph one Number GE RIS after 03/05/2019 Insurance Payer Benefit Subscriber ID Type Phone Address Plan / Group [facility] UNITED HMO xxxxxxxxx HMO/PO S CARE POS SELECT CHOICE xxxxxxxxxxx Other Govt [employer]IME (, HMO/POS [place], USF[employer], etc.) [address] ([place]) [place] [phone] Advance Directives For more information, please contact: [facility] [address] [place] [address] Date Inactivated Comments Code Status Date Activated 10/03/2019 5:42 PM Full Code 10/03/2019 5:38 AM This code status was determined by: Patient 10/03/2019 5:30 AM Full Code 11/19/2018 3:46 AM This code status was determined by: Patient
[2020-03-05] MEDS ORDERED: IBUPROFEN 200 MG TAB PO ONE (17:30)
[2020-03-05] MEDS ORDERED: ACETAMINOPHEN 325 MG TAB PO ONE (17:30)
[2020-03-05] MEDS ORDERED: IBUPROFEN 600 MG TAB ONE (17:38)
--- NOTE | 2020-03-05 17:39 | Diagnostic Imaging Report ---
Shoulder complete CPT code: 58612 Indication: Left shoulder pain for 2 days ^acute pain Technique: Internal, external and Y-view of left shoulder obtained. Comparison: Chest x-ray 11/27/2019. Findings: There is no current dislocation. No evidence of fracture involving humeral head. Visualized proximal shaft is intact. The clavicle is intact. The clavicle and acromion are properly aligned. No fracture evident involving the visualized portion of the scapula. No joint space narrowing or osteophytosis. No undersurface spurring of the acromion. A bone island in the superior aspect of the humeral head measures 6 mm and is stable. The visualized chest is unremarkable. IMPRESSION: No osseous findings to explain pain. Signed by: Dr. Osmany Hoffmann MD on 03/05/2020 5:35 PM
--- NOTE | 2020-03-05 17:41 | Diagnostic Imaging Report ---
Cervical Spine Two Views CPT code: 92411 Indication: Left shoulder pain Technique: AP and lateral views of cervical spine obtained. Comparison: None Findings: The vertebral bodies can be visualized to T1. The alignment is anatomic. No prevertebral soft tissue swelling. No disc space narrowing or osteophytosis. The facets and spinous processes are normally aligned. Alignment is maintained on the AP view. The lateral masses of C1 are symmetric. The dens is intact. The skull base and upper chest are normal. IMPRESSION: No abnormalities of the cervical spine to explain pain. Signed by: Dr. Osmany Hoffmann MD on 03/05/2020 5:38 PM
== END 2020-03-05 18:01 | disposition home or self-care (01) ==
LOC: FSED 16:29
DX: M25.512 Pain in left shoulder (principal); M54.2 Cervicalgia
CPT/HCPCS: 72040; 99283